=== PATIENT | female | born 1935 | race Caucasian/White ===

== ENCOUNTER 2023-04-02 11:16 | Day surgery (SDC) | payer MEDICARE, OTHER ==
[~2023-04-02] VITALS: Ht 157.5 cm; Wt 58.1 kg
[2023-04-02 12:00] VITALS: BP 177/91; PULSE 72; RESP 16; TEMP 97.5; O2SAT 96
[2023-04-02] MEDS ORDERED: MOME110A INH (12:18)
[2023-04-02] MEDS ORDERED: UBID50TA3 PO (12:18)
[2023-04-02] MEDS ORDERED: VITA-268 PO (12:18)
[2023-04-02] MEDS ORDERED: [UNRECOGNIZED DRUG - OTHER] PO (12:18)
[2023-04-02] MEDS ORDERED: TRIA15CR62 TOP (12:18)
[2023-04-02] MEDS ORDERED: DIPH-522 PO (12:18)
[2023-04-02] MEDS ORDERED: ALBU2.5V10 INH (12:18)
[2023-04-02] MEDS ORDERED: MELA2.5T16 PO (12:18)
[2023-04-02] MEDS ORDERED: FERR-106 PO (12:18)
[2023-04-02] MEDS ORDERED: VITA100T PO (12:18)
[2023-04-02] MEDS ORDERED: [UNRECOGNIZED DRUG - CODE] PO (12:18)
[2023-04-02] MEDS ORDERED: VITD400T PO (12:18)
[2023-04-02] MEDS ORDERED: NITR0.4T51 SL (12:18)
[2023-04-02] MEDS ORDERED: CARV6.253 PO (12:18)
[2023-04-02] MEDS ORDERED: CLOP75TA34 PO (12:18)
[2023-04-02] MEDS ORDERED: ROSU40TA22 PO (12:18)
[2023-04-02] MEDS ORDERED: ACET-2778 PO (12:18)
[2023-04-02] MEDS ORDERED: VALS40TA11 PO (12:18)
[2023-04-02 12:45] VITALS: BP 178/68; PULSE 66; RESP 16; O2SAT 94
[2023-04-02] MEDS ORDERED: LIDOcaine 1% 30ml preserv. free vial ONE (12:47)
[2023-04-02 12:56] VITALS: BP 180/79; PULSE 62; RESP 16; O2SAT 95
[2023-04-02 13:00] VITALS: BP 164/65; PULSE 61; RESP 16; O2SAT 96
== END 2023-04-02 13:22 | disposition home or self-care (01) ==
LOC: SSTAY O 11:16
PROVIDERS: ATTEND Radiology Vascular & Interventional Radiology
DX: R22.1 Localized swelling, mass and lump, neck (principal); I25.10 Atherosclerotic heart disease of native coronary artery without angina pectoris; I10 Essential (primary) hypertension; I25.2 Old myocardial infarction; E78.5 Hyperlipidemia, unspecified; D64.9 Anemia, unspecified; M85.80 Other specified disorders of bone density and structure, unspecified site; J44.9 Chronic obstructive pulmonary disease, unspecified; M16.10 Unilateral primary osteoarthritis, unspecified hip; Z86.73 Personal history of transient ischemic attack (TIA), and cerebral infarction without residual deficits; Z90.710 Acquired absence of both cervix and uterus; Z88.8 Allergy status to other drugs, medicaments and biological substances; Z98.890 Other specified postprocedural states; Z85.828 Personal history of other malignant neoplasm of skin; Z79.899 Other long term (current) drug therapy; Z88.1 Allergy status to other antibiotic agents; Z79.01 Long term (current) use of anticoagulants; Z95.1 Presence of aortocoronary bypass graft; Z98.49 Cataract extraction status, unspecified eye; Z82.49 Family history of ischemic heart disease and other diseases of the circulatory system; Z80.0 Family history of malignant neoplasm of digestive organs
CPT/HCPCS: 20206; 76942; J3490; 36415; 88305